=== PATIENT | female | born 1995 | race Caucasian/White ===

== ENCOUNTER 2018-01-30 05:26 | Inpatient (IN) ==
[2018-01-30] MEDS ORDERED: PENICILLIN G POTASSIUM 5 MILLIONUNT in DEXTROSE 5 % IN WATER 100 ML IV ONE ×2 (07:46)
[2018-01-30] MEDS ORDERED: RINGER'S SOLUTION,LACTATED 1,000 ML IV ONE (07:46)
[2018-01-30] MEDS ORDERED: OXYTOCIN/DEXTROSE 5%-WATER 30 UNITS/500 ML BAG IV ONE ×2 (07:46→16:55)
[2018-01-30] MEDS ORDERED: DEXTROSE 5%-LACTATED RINGERS 1,000 ML IV PRN (07:46)
--- NOTE | 2018-01-30 08:49 | PN ---
Progess Note - Interim Date: 01/30/18 Time: 08:45 Narrative: 01/30/18 08:45 Pt uncomforable, wanting epidural SVE: /-2, BBOW FHTs: 130's, mod vanessa, no decels [place]: q3-5 min A/P: Labor Encourage ambulation GBS pos-on pcn Pitocin prn
[2018-01-30] MEDS ORDERED: ONDANSETRON HCL/PF 2 MG/ML VIAL IV PRN (09:42)
[2018-01-30] MEDS ORDERED: NALOXONE HCL 1 MG/1 ML SYRG IV PRN (09:42)
[2018-01-30] MEDS ORDERED: BUPIVACAINE HCL/0.9 % NACL/PF 250 ML EP PRN (09:42)
[2018-01-30] MEDS ORDERED: BUPIVACAINE HCL/PF 30 ML VIAL EP SCH (09:45)
[2018-01-30] MEDS ORDERED: RINGER'S SOLUTION,LACTATED 1,000 ML IV PRN (09:57)
--- NOTE | 2018-01-30 10:05 | OR ---
Anesthesia Procedure Note - Anesthesia Procedure Note Date of Service: 01/30/18 Narrative: Vital Signs - Last Taken Temp 36.7 C 01/30/18 09:42 Pulse 67 01/30/18 09:42 Resp 20 01/30/18 09:42 BP 111/73 01/30/18 09:42 Pulse Ox 98 01/30/18 09:42 01/30/18 10:04 ANESTHESIA PROCEDURE NOTE Date of Procedure: 01/30/2018. Time of procedure: 944. Performed by: Carlos Pike CRNA Assistant Film Editor: None. Preprocedure diagnosis: Active labor. Post procedure diagnosis: Same. Procedure: Insertion of labor epidural. Indications: The patient is a 22 -year-old female in active labor requesting labor epidural for pain management. Findings: See below. Details of the procedure: The patient was placed in a sitting position. DuraPrep as well as Betadine swabs X3 was applied to the patient's back. Patient was then draped in a sterile fashion. Lidocaine 1% was infiltrated to the skin and subcutaneous tissues at the level of the L3-4 interspace. The epidural space was identified using a 18-gauge Tuohy needle with loss-of- resistance technique. Epidural catheter was inserted to a depth of 12 centimeters at skin. Negative test dose was elicited using 3 mL of 1.5% preservative-free lidocaine plus epinephrine 1 200,000. The epidural catheter was then taped and secured in place. A loading dose of 8 mL of 0.25% preservative-free bupivacaine was administered to the epidural catheter after negative aspiration for blood and CSF. EBL: Minimal. Fluids: N/A. Specimen: N/A. Post procedure condition: The patient tolerated the procedure well. No complications were noted. Thank you for this consultation. Carlos Pike CRNA
[2018-01-30] MEDS: PENICILLIN G POTASSIUM 2.5 MILLIONUNT in DEXTROSE 5 % IN WATER 100 ML IV SCH ×4 (11:46→15:39)
--- NOTE | 2018-01-30 13:06 | PN ---
Progess Note - Interim Date: 01/30/18 Time: 13:05 Narrative: 01/30/18 13:05 Pt sleeping and comfortable SVE: 5-6/90/-2, amniotomy with clear fluid FHTs: 130's, mod vanessa, no decels [place]: q3 min A/P: Labor GBS pos-on pcn Pitocin prn Anticipate
[2018-01-30] MEDS ORDERED: HYDROCORTISONE 30 APPL TUBE TP PRN (16:55)
[2018-01-30] MEDS ORDERED: oxyCODONE HCL/ACETAMINOPHEN 1 TAB TABLET PO PRN (16:55)
[2018-01-30] MEDS ORDERED: BISACODYL 10 MG SUPP.RECT RC PRN (16:55)
[2018-01-30] MEDS ORDERED: BENZOCAINE/MENTHOL 81 SPRAY CAN TP PRN (16:55)
[2018-01-30] MEDS ORDERED: GLYCERIN/WITCH HAZEL LEAF 40 APPL BOX TP PRN (16:55)
[2018-01-30] MEDS ORDERED: SENNOSIDES 8.6 MG TABLET PO PRN (16:55)
--- NOTE | 2018-01-30 16:58 | OR ---
Operative Report - Dictated Report Narrative: Spontaneous Vaginal Delivery Viable female with APGARS of 9 at 1 minute and 9 at 5 minutes. She delivered at 1643 Presentation was [place]. There was a loop of cord noted anterior to the shoulder. The left anterior shoulder delivered with gentle downward traction followed by the posterior shoulder and the remainder of the baby. The baby was placed on maternal abdomen and dried and stimulated. The cord was clamped and cut after approximately 60 seconds. Weight: 3457 g Placenta was delivered spontaneously and intact. No lacerations were noted. Estimated blood loss: 100 ml Mother and baby tolerated delivery well.
--- NOTE | 2018-01-30 17:00 | OR ---
History for MU Definition: * The number of deliveries resulting in a live the patient experienced prior to current hospitalization * The previous delivery of live twins or any live multiple gestation is considered one live event. *If primagravida or nulliparous is documented select zero for the number of previous live births. Live Events: 1
[2018-01-30] MEDS: oxyCODONE HCL/ACETAMINOPHEN 1 TAB TABLET PO PRN (18:41)
[2018-01-30] MEDS: IBUPROFEN 800 MG TABLET PO PRN (18:41)
[2018-01-30] MEDS: DOCUSATE SODIUM 100 MG CAPSULE PO SCH (22:23)
[2018-01-31] MEDS: IBUPROFEN 800 MG TABLET PO PRN ×3 (02:31→19:26)
[2018-01-31] MEDS: oxyCODONE HCL/ACETAMINOPHEN 1 TAB TABLET PO PRN ×3 (02:31→19:27)
--- NOTE | 2018-01-31 07:19 | PN ---
Progess Note - Interim Date: 01/31/18 Time: 07:13 Narrative: 01/31/18 07:13 progress note Subjective: The patient is doing well. She is ambulating, voiding, tolerating by mouth. She has minimal pain and moderate lochia. Objective: General: No acute distress Abdomen: Soft, nontender, fundus is firm just below the umbilicus Extremities: minimal edema, nontender to palpation Assessment and plan: day 1 Feeding: bottle Pain: Controlled with by mouth medication control: permanent sterilization, I discussed that this would be done around 6 weeks with laparoscopy. I will not appear at that timeframe and she requests my partner Dr. Parry. Plan to follow-up with him in 4 weeks and then schedule her interval sterilization. Routine care. 01/31/18 07:18
[2018-01-31] MEDS: DOCUSATE SODIUM 100 MG CAPSULE PO SCH (11:21)
[2018-02-01] MEDS: oxyCODONE HCL/ACETAMINOPHEN 1 TAB TABLET PO PRN ×2 (01:23→08:23)
[2018-02-01] MEDS: IBUPROFEN 800 MG TABLET PO PRN ×2 (01:23→08:23)
[2018-02-01] MEDS: DOCUSATE SODIUM 100 MG CAPSULE PO SCH ×2 (07:08→08:18)
--- NOTE | 2018-02-01 09:25 | PN ---
Progess Note - Interim Date: 02/01/18 Time: 09:25 Narrative: 02/01/18 09:25 progress note Subjective: The patient is doing well. She is ambulating, voiding, tolerating by mouth. She has minimal pain and moderate lochia. Objective: General: No acute distress Abdomen: Soft, nontender, fundus is firm just below the umbilicus Extremities: minimal edema, nontender to palpation Assessment and plan: day 2 Feeding: Bottle Pain: Controlled with by mouth medication Routine care.
[2018-02-01 13:10] VITALS: BP 122/77
== END 2018-02-01 12:30 | disposition home or self-care (01) | DRG 775 ==
LOC: OBCLINIC 05:26 → OB 07:42
PROVIDERS: ADMIT Obstetrics & Gynecology; ATTEND Obstetrics & Gynecology
DX: O99.824 Streptococcus B carrier state complicating childbirth; Z3A.38 38 weeks gestation of pregnancy; Z87.440 Personal history of urinary (tract) infections; Z37.0 Single live birth
CPT/HCPCS: 59025